=== PATIENT | male | born 1985 | race Caucasian/White ===

== ENCOUNTER 2020-12-28 11:42 | Emergency (ER) | payer OTHER ==
[2020-12-28 12:16] LABS: BASOPHILS # (AUTO) 0.1 10^3/uL (0.0-0.1); BASOPHILS % (AUTO) 0.6 %; EOSINOPHILS # (AUTO) 0.1 10^3/uL (0.0-0.7); EOSINOPHILS % (AUTO) 1.1 %; HGB - HEMOGLOBIN 15.8 g/dL (14.0-18.0); LYMPHOCYTES # (AUTO) 2.6 10^3/uL (1.5-3.5); LYMPHOCYTES % (AUTO) 30.9 %; MEAN CORPUSCULAR HEMOGLOBIN 28.9 pg (27.0-31.0); MEAN CORPUSCULAR HGB CONC 32.9 g/dL (32.0-36.0); MEAN CORPUSCULAR VOLUME 87.8 fL (80.0-94.0); MEAN PLATELET VOLUME 9.5 fL (7.4-11.4); MONOCYTES # (AUTO) 0.6 10^3/uL (0.0-1.0); MONOCYTES % (AUTO) 6.9 %; NEUTROPHILS % (AUTO) 60.1 %; PLT - PLATELET COUNT 257 10^3/uL (130-450); RED BLOOD COUNT 5.47 10^6/uL (4.70-6.10); RED CELL DISTRIBUTION WIDTH 11.9 % (12.0-15.0); WHITE BLOOD COUNT 8.3 x10^3/uL (4.8-10.8)
[2020-12-28] MEDS ORDERED: DEXAMETHASONE 10 MG/ML VIAL IVP STA (12:17)
[2020-12-28] MEDS ORDERED: KETOROLAC 30 MG/ML VIAL IVP STA (12:17)
[2020-12-28 12:32] LABS: ALBUMIN 5.2 g/dL (3.2-5.5); ALBUMIN/GLOBULIN RATIO 1.7 (1.0-2.2); BILIRUBIN,TOTAL 0.7 mg/dL (0.2-1.0); CALCIUM 9.7 mg/dL (8.5-10.3); CREATININE 1.1 mg/dL (0.6-1.2); POTASSIUM 3.8 mmol/L (3.5-5.0); TOTAL PROTEIN 8.2 g/dL (6.7-8.2)
--- NOTE | 2020-12-28 12:33 | XRAY Report ---
PROCEDURE: Chest 1 View X-Ray INDICATIONS: Chest Pain TECHNIQUE: One view of the chest was acquired. COMPARISON: None FINDINGS: Surgical changes and devices: None. Lungs and pleura: No pleural effusions or pneumothorax. Lungs are clear. Mediastinum: Mediastinal contours appear normal. Heart size is normal. Bones and chest wall: No suspicious bony lesions. Overlying soft tissues appear unremarkable. IMPRESSION: No evidence acute pulmonary process. Reviewed by: Christopher Ramíerz MD on 12/28/2020 11:31 AM [facility] Approved by: Christopher Ramírez MD on 12/28/2020 11:31 AM [facility] Station ID: [id number]
[2020-12-28 13:04] VITALS: BP 130/83
--- NOTE | 2020-12-28 13:25 | ED Physician Documentation ---
PD HPI CHEST PAIN - Stated complaint Stated Complaint: CHEST PX - Chief complaint Chief Complaint: Cardiac - History obtained from History obtained from: Patient - History of Present Illness Timing - onset: How many days ago (3) Timing - onset during: Rest Timing - duration: Days (3) Timing - details: Gradual onset, Now resolved Quality: Sharp, Pain Location: Substernal Radiation: No: Jaw, Neck, Back, Abdominal Improved by: Rest Worsened by: Inspiration, Position Associated symptoms: Shortness of air (hurts to breath) Similar symptoms before: Has not had sx before Recently seen: Not recently seen - Additional information Additional information: 35-year-old male relates a 3-day history of central chest pain without radiation that is worse with inspiration. He has no other modifying factors.He has not had this previously and he is not currently ill. Review of Systems Constitutional: denies: Fever Eyes: denies: Decreased vision Ears: denies: Ear pain Nose: denies: Congestion Throat: denies: Sore throat Cardiac: reports: Chest pain / pressure. denies: Palpitations, Pedal edema, Calf pain Respiratory: reports: Dyspnea. denies: Cough, Wheezing GI: denies: Abdominal Pain, Nausea, Vomiting : denies: Dysuria, Frequency Skin: denies: Rash Musculoskeletal: denies: Neck pain, Back pain, Extremity pain Neurologic: denies: Generalized weakness, Focal weakness, Numbness PD PAST MEDICAL HISTORY - Past Medical History Past Medical History: Yes Cardiovascular: None Respiratory: Asthma Endocrine/Autoimmune: None GI: None : None HEENT: None Psych: None Musculoskeletal: None Derm: None - Past Surgical History Past Surgical History: Yes Ortho: Other - Present Medications Home Medications: Ambulatory Orders Medication Instructions Recorded Confirmed No Known Home Medications 12/28/20 12/28/20 - Allergies Allergies/Adverse Reactions: Allergies Allergy/AdvReac Type Severity Reaction Status Date / Time No Known Drug Allergies Allergy Verified 12/28/20 11:52 - Social History Does the pt smoke?: No Smoking Status: Former smoker Does the pt drink ETOH?: Yes Does the pt have substance abuse?: No - Immunizations Immunizations are current?: Yes PD ED PE NORMAL - Vitals Vital signs reviewed: Yes (hypertensive ) - General General: Alert and oriented X 3, No acute distress, Well developed/nourished - HEENT HEENT: Atraumatic, PERRL, EOMI - Neck Neck: Supple, no meningeal sign, No bony TTP - Cardiac Cardiac: RRR, No murmur - Respiratory Respiratory: No respiratory distress, Clear bilaterally, Other (no specific chest wall tenderness to muscular chest wall. ) - Abdomen Abdomen: Soft, Non tender - Back Back: No CVA TTP, No spinal TTP - Derm Derm: Normal color, Warm and dry, No rash - Extremities Extremities: No deformity, No edema - Neuro Neuro: Alert and oriented X 3, strip feeder 2-12 intact, No motor deficit, No sensory deficit, Normal speech Eye Opening: Spontaneous Motor: Obeys Commands Verbal: Oriented GCS Score: 15 - Psych Psych: Normal mood, Normal affect Results - Vitals Vitals: Vital Signs - 24 hr 12/28/20 12/28/20 12/28/20 11:45 12:11 13:01 Temperature 36.7 C 36.7 C Heart Rate 98 106 H 92 Respiratory 16 22 20 Rate Blood Pressure 159/91 H 151/88 H 130/83 H O2 Saturation 100 98 96 Oxygen O2 Source Room air - EKG (time done) 1147 Rate: Rate (enter#) (107) Rhythm: Sinus tachycardia, LAE [place]: LAD Ischemia: Normal ST segments Compare to prior EKG: Old EKG unavailable Computer interpretation: Agree with computer - Labs Labs: Laboratory Tests 12/28/20 12/28/20 12/28/20 12:00 12:00 12:00 WBC 8.3 RBC 5.47 Hgb 15.8 Hct 48.0 MCV 87.8 MCH 28.9 MCHC 32.9 RDW 11.9 L Plt Count 257 MPV 9.5 Neut # (Auto) 5.0 Lymph # (Auto) 2.6 [place] # (Auto) 0.6 Eos # (Auto) 0.1 Baso # (Auto) 0.1 Absolute Nucleated RBC 0.00 Nucleated RBC % 0.0 D-Dimer Sodium 138 Potassium 3.8 Chloride 102 Carbon Dioxide 27 Anion Gap 9.0 BUN 15 Creatinine 1.1 Estimated GFR (MDRD) 77 L Glucose 109 H Calcium 9.7 Total Bilirubin 0.7 AST 21 ALT 19 Alkaline Phosphatase 81 Troponin I High Sens 2.6 Total Protein 8.2 Albumin 5.2 Globulin 3.0 Albumin/Globulin Ratio 1.7 Lipase 25 12/28/20 12:00 WBC RBC Hgb Hct MCV MCH MCHC RDW Plt Count MPV Neut # (Auto) Lymph # (Auto) [place] # (Auto) Eos # (Auto) Baso # (Auto) Absolute Nucleated RBC Nucleated RBC % D-Dimer < 200.0 L Sodium Potassium Chloride Carbon Dioxide Anion Gap BUN Creatinine Estimated GFR (MDRD) Glucose Calcium Total Bilirubin AST ALT Alkaline Phosphatase Troponin I High Sens Total Protein Albumin Globulin Albumin/Globulin Ratio Lipase - Rads (name of study) chest Radiology: Prelim report reviewed (Impression: No evidence of acute pulmonary process.), EMP read indepedently, See rad report PD MEDICAL DECISION MAKING - ED course Complexity details: reviewed results, re-evaluated patient, considered differential, d/w patient ED course: 35-year-old male with acute pleuritic chest pain is a negative D-dimer negative troponin normal-appearing electrocardiogram and he responds to dexamethasone and Toradol for treatment. Departure - Departure Disposition: 01 Home, Self Care Clinical Impression: Pleurisy Condition: Stable Instructions: ED Chest Pain Pleurisy Follow-Up: BRO YBARRA MD [Primary Care Provider] - Discharge Date/Time: 12/28/20 13:45
== END 2020-12-28 13:45 | disposition home or self-care (01) ==
LOC: ED 11:42
DX: R09.1 Pleurisy (principal); R00.0 Tachycardia, unspecified; Z87.891 Personal history of nicotine dependence
CPT/HCPCS: 36415; 80053; 83690; 84484; 85025; 85379; 93005; 96374; 96375; 99284

== ENCOUNTER 2021-06-19 05:07 | Outpatient (CLI) | payer OTHER | END 2021-06-19 05:08 | disposition critical access hospital (66) | LOC: EMS 05:07 | DX: M54.50 Low back pain, unspecified (principal) | CPT/HCPCS: A0425; A0429 ==

== ENCOUNTER 2021-06-19 05:31 | Emergency (ER) | payer OTHER ==
[2021-06-19] MEDS ORDERED: KETOROLAC 60 MG/2 ML VIAL IM STA (06:29)
[2021-06-19] MEDS ORDERED: methocarbamoL 500 MG TABLET PO STA (06:29)
--- NOTE | 2021-06-19 06:33 | ED Physician Documentation ---
History of Present Illness - Stated complaint Stated Complaint: BACK PAIN - Chief complaint Chief Complaint: Back Pain - History obtained from History obtained from: Patient - Additonal information Additional information: 36yM previously healthy p/w sudden onset severe 10/10 lower back pain starting this am while lifting a 140lb weight at the gym. patient states he was doing his usual workout when he experienced sudden pain between his hips and lower back causing him to fall to the floor. he was unable to get up again without severe pain and so called ems. now in the ED pain is 6/10, worse with twisting and pressing on the back, constant, aching. he has not had any analgesia. denies groin or extremity numbness, weakness, difficulty urinating or urinary/fecal incontinence. Review of Systems Musculoskeletal: reports: Back pain Neurologic: denies: Focal weakness, Numbness PD PAST MEDICAL HISTORY - Past Medical History Past Medical History: Yes Cardiovascular: None Respiratory: Asthma Endocrine/Autoimmune: None GI: None : None HEENT: None Psych: None Musculoskeletal: None Derm: None - Past Surgical History Past Surgical History: Yes Ortho: Other - Present Medications Home Medications: Ambulatory Orders Medication Instructions Recorded Confirmed Cyclobenzaprine [Flexeril] 10 mg PO TID PRN #20 tablet 06/19/21 HYDROcod/ACETAM 5/325 [[place] 5/325] 1 - 2 tablet PO Q6H PRN #20 tablet 06/19/21 Ibuprofen [Motrin] 800 mg PO Q8H PRN #30 tablet 06/19/21 - Allergies Allergies/Adverse Reactions: Allergies Allergy/AdvReac Type Severity Reaction Status Date / Time No Known Drug Allergies Allergy Verified 06/19/21 05:41 - Social History Does the pt smoke?: No Smoking Status: Never smoker Does the pt drink ETOH?: Yes Does the pt have substance abuse?: No - Immunizations Immunizations are current?: Yes PD ED PE NORMAL - Vitals Vital signs reviewed: Yes - General General: Alert and oriented X 3, No acute distress, Well developed/nourished - HEENT HEENT: Atraumatic, PERRL, EOMI - Neck Neck: No bony TTP - Back Back: No spinal TTP, Other (BL paraspinal muscles of lower back ttp) - Derm Derm: Normal color, Warm and dry - Extremities Extremities: No deformity, Normal ROM s pain, Other (2+ BL dp pulses. normal sensation, movement, cap refill) - Neuro Neuro: No motor deficit, No sensory deficit - Psych Psych: Normal mood, Normal affect Results - Vitals Vitals: Oxygen O2 Source Room air PD MEDICAL DECISION MAKING - ED course ED course: 36yM p/w sudden muscle spasm versus possible disc herniation s/p lifting weights at the gym. no red flags for spinal impingement. Patient with improvement in pain in the ED after being taken off of backboard. additional toradol administered. 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 Patient received CT lumbar spine in the ED and is endorsed to Dr. Childs, daytime ED MD pending CT and read. Departure - Departure Disposition: 01 Home, Self Care Clinical Impression: Herniated intervertebral disc of lumbar spine Back pain Qualifiers: Back pain location: low back pain Chronicity: acute Back pain laterality: right Sciatica presence: without sciatica Qualified Code(s): M54.50 - Low back pain, unspecified Condition: Stable Instructions: ED Low Back Pain Injury Follow-Up: BOUCHRA GALLARDO DO [Physician No Access] - Prescriptions: Cyclobenzaprine [Flexeril] 10 mg PO TID PRN #20 tablet PRN Reason: Spasms Ibuprofen [Motrin] 800 mg PO Q8H PRN #30 tablet PRN Reason: PAIN &/OR FEVER HYDROcod/ACETAM 5/325 [[place] 5/325] 1 - 2 tablet PO Q6H PRN #20 tablet PRN Reason: Pain Comments: You were seen in the emergency department for low back injury. Take ibuprofen 600 mg every 6 hours as needed for pain (or take an equivalent NSAID like meloxicam, naproxen, or motrin). Apply icy hot, cool compresses alternating with warm compresses, and use gentle massage to relieve muscle spasm. [place] not have improvement with basic symptomatic care. Return to the emergency department immediately if you d evelop numbness, weakness, or if you cannot control urination or bowel movements since this can be a sign of spinal cord injury. Return if you have new or worsening symptoms or other concerns. Many spine surgeon options in both [place] and [place]. You have been given the number to the [facility] clinic for orthopedics and spine, but if you wish to try somebody else, you can also Google "orthopedic spine surgeons in [place]" and there several other clinics, as well. Discharge Date/Time: 06/19/21 09:19
--- NOTE | 2021-06-19 08:24 | CT Report ---
PROCEDURE: LUMBAR SPINE WO INDICATIONS: sudden pain lifting weights this am TECHNIQUE: Noncontrast 3 mm thick sections acquired from the T12 level to the sacrum. Sagittal and coronal refo rmats were constructed. For radiation dose reduction, the following was used: automated exposure co ntrol, adjustment of mA and/or kV according to patient size. COMPARISON: None. FINDINGS: Image quality: Excellent. Bones: There is normal bony alignment. No acute vertebral body compression fractures. Small sclerot ic foci in the right sacrum and left iliac bone may represent bone islands. Central spinal caliber is of normal overall caliber. No pars defects. T12-L1: Normal in appearance. L1-L2: Normal in appearance. L2-L3: Normal in appearance. L3-L4: Possible central disc extrusion. L4-L5: Possible central/left central disc extrusion. L5-S1: Normal in appearance. Soft tissues: No retroperitoneal masses or hematomas. Visualized aorta is normal in caliber. IMPRESSION: 1. No fracture. 2. Possible L3-L4 and L4-L5 disc extrusions. Recommend MRI of the lumbar spine for definitive charact erization. 3. Small sclerotic foci in the left iliac bone and the right sacrum may represent bone islands. Recom mend evaluation of the time of MRI imaging. Reviewed by: Steffanie River MD, PhD on 06/19/2021 8:22 AM PST Approved by: Steffanie River MD, PhD on 06/19/2021 8:22 AM PST Station ID: [id number]
[2021-06-19] MEDS ORDERED: HYDROmorphone 2 MG/ML VIAL IM STA (08:35)
[2021-06-19 08:51] VITALS: BP 143/90
--- NOTE | 2021-06-19 09:03 | ED Physician Documentation ---
ED Addendum - Addendum Addendum: 06/19/21 09:01 The patient was signed out to me by Dr. Young pending CT scan of the spine after injury at the gym. The patient had been treated with Toradol and muscle relaxer prior to my arrival. CT scan showed disc herniations at L3-4 and L4-5. The patient did not have any concerning neurologic findings, and was controlling his bowels and bladder without difficulty in the emergency department. I discussed the findings with him and that he will need to follow-up with his primary care physician at least, but can also follow-up with a retail support specialist if he wishes. We've discussed that some of this disc herniation may be chronic, given that the patient regularly goes to the gym and does weight training. He does seem to have some muscle spasm, as his pain and tenderness are more on the right side, and it will need to be determined whether he needs further intervention at some point. However, no further imaging or consultation is indicated in the emergency department at this time. We discussed symptomatic management at home, and I have prescribed Vicodin, Flexeril, and ibuprofen for him. He has been given a dose of Dilaudid in the emergency department for ongoing pain with range of motion. We discussed the usual indications for return. Final impression: 1. Lumbar disc herniation 2. Back pain Disposition: Home in stable condition.
== END 2021-06-19 09:19 | disposition home or self-care (01) ==
LOC: EDUNIT# → ED 05:31
DX: M51.26 Other intervertebral disc displacement, lumbar region (principal)
CPT/HCPCS: 72131; 96372; 99284; A9270; J1170

== ENCOUNTER 2021-06-26 09:23 | Outpatient (CLI) | payer OTHER ==
--- NOTE | 2021-06-26 10:41 | MRI Report ---
PROCEDURE: Lumbar Spine W/O INDICATIONS: L3-L4 , L4-L5 DISC EXTRUSIONS TECHNIQUE: Noncontrast sagittal T1 spin echo and T2 fast echo, sagittal STIR, axial T1 and T2 fast spin echo thr ough the lumbar spine. In cases with scoliosis, additional coronal T2 fast spin echo may be performe d. COMPARISON: CT dated 06/19/2021 FINDINGS: Image quality: Excellent. Alignment and Curvature: There are 5 lumbar type vertebral bodies by CT. There is loss of normal lumb ar lordosis. There is mild grade 1 retrolisthesis of L3 on L4, L4 on L5, and L5 on S1. Bone Marrow: Marrow is of normal overall signal. No acute vertebral body compression fractures. Th ere is minimal reactive signal throughout the endplates of the lumbar spine. Spinal Cord: Conus medullaris terminates at the mid L1 level. Visualized cord demonstrates normal s ignal and size. Paraspinous Soft Tissues: No paravertebral masses. T12-L1: Normal in appearance. L1-L2: Normal in appearance. L2-L3: Normal in appearance. L3-L4: Mild disc desiccation and diffuse disc bulge with superimposed small left paracentral protru keven. Mild facet and ligament flavum hypertrophy. Mild epidural lipomatosis. Mild canal stenosis. Mil d bilateral foraminal stenosis. L4-L5: Mild disc desiccation and diffuse disc bulge with small superimposed central protrusion. Mil d facet and ligament flavum hypertrophy. Mild canal stenosis. Moderate bilateral foraminal stenosis. L5-S1: Moderate disc height loss and desiccation. Mild diffuse disc bulge. Mild bilateral facet hyp ertrophy. No significant canal stenosis. Mild bilateral foraminal stenosis IMPRESSION: 1. Multilevel degenerative disc and facet disease, in addition to epidural lipomatosis and ligamentum flavum hypertrophy. 2. Mild multilevel canal stenoses. 3. Multilevel foraminal stenoses, worst at L4-L5 where there are moderate foraminal stenoses. Reviewed by: Romina Pisano MD on 06/26/2021 9:40 AM [place] Approved by: Romina Pisano MD on 06/26/2021 9:40 AM [facility] Station ID: [id number]
== END 2021-06-26 09:24 | disposition home or self-care (01) ==
LOC: DI 09:23
DX: M51.36 Other intervertebral disc degeneration, lumbar region (principal); M48.061 Spinal stenosis, lumbar region without neurogenic claudication

== ENCOUNTER 2022-12-24 09:38 | Outpatient (CLI) | payer OTHER ==
--- NOTE | 2022-12-24 12:42 | MRI Report ---
PROCEDURE: KNEE WO - LT INDICATIONS: LEFT KNEE PAIN TECHNIQUE: Noncontrast sagittal PD fast spin echo and T2 fast spin echo with fat saturation, sagittal 3-D spoile d GE with fat saturation; coronal T1 spin echo and PD fast spin echo with fat saturation, and axial P D fast spin echo with fat saturation through the knee. COMPARISON: None. FINDINGS: Image quality: Excellent. Anterior cruciate ligament: Intact. Posterior cruciate ligament: Intact. Medial collateral ligament: Intact. Lateral collateral ligament: Intact. Medial meniscus: Intact. Lateral meniscus: Intact. Medial and lateral tendons: The semimembranosus tendon insertions appear intact. Visualized portion s of the pes anserinus tendons appear normal. The popliteus tendon appears intact. Iliotibial band appears normal. Anterior structures: Mild patella mirna. The distal quadriceps tendon is intact. There is a congenita lly shallow trochlear groove with lateral patellar tilting but no significant patellar subluxation. T he tibial tubercle-trochlear groove distance is mildly elevated at 2.1 cm. No edema in the infrapatel lar fat pad. Bones: No acute trabecular bone injury or fracture. Medial femorotibial cartilage: Intact. Lateral femorotibial cartilage: Intact. Patellofemoral cartilage: Intact. Soft tissues: There is a physiologic amount of joint fluid. There is a trace medial popliteal cyst. The musculature surrounding the knee is normal in bulk. IMPRESSION: 1.No acute trabecular bone injury. Cruciate and collateral ligaments are intact. No meniscal tear or focal cartilage defect is seen. 2.Mild patella mirna. 3.Congenitally shallow trochlear groove is seen with lateral patellar tilting but no significant gilliland llar subluxation. The tibial tubercle-trochlear groove distance is mildly elevated at 2.1 cm. Reviewed by: Pasha Ny MD on 12/24/2022 12:41 PM PDT Approved by: Pasha Ny MD on 12/24/2022 12:41 PM PDT Station ID: [id number]
== END 2022-12-24 09:39 | disposition home or self-care (01) ==
LOC: DI 09:38
PROVIDERS: ATTEND Student in an Organized Health Care Education/Training Program
DX: M25.562 Pain in left knee (principal)